=== PATIENT | female | born 1995 | race Two or more races ===

== ENCOUNTER 2016-12-16 03:05 | Emergency (ER) | payer OTHER ==
[~2016-12-16] VITALS: Ht 170.2 cm; Wt 126.6 kg
[2016-12-16 03:24] VITALS: BP 144/82
== END 2016-12-16 05:34 | disposition home or self-care (01) ==
LOC: ER 03:10
DX: J03.90 Acute tonsillitis, unspecified (principal); J35.1 Hypertrophy of tonsils

== ENCOUNTER 2017-10-07 14:12 | Emergency (ER) | payer MEDICAID, OTHER ==
[~2017-10-07] VITALS: Ht 170.2 cm; Wt 133.8 kg
[2017-10-07 14:43] VITALS: BP 127/52
== END 2017-10-07 16:26 | disposition home or self-care (01) ==
LOC: ER 14:12
DX: J03.90 Acute tonsillitis, unspecified (principal); Z88.8 Allergy status to other drugs, medicaments and biological substances

== ENCOUNTER 2018-01-06 19:18 | Emergency (ER) | payer MEDICAID ==
[~2018-01-06] VITALS: Ht 170.2 cm; Wt 136.1 kg
[2018-01-06 19:50] VITALS: BP 128/89
== END 2018-01-06 20:59 | disposition home or self-care (01) ==
LOC: ER 19:18
DX: R07.0 Pain in throat (principal); R20.8 Other disturbances of skin sensation; F12.90 Cannabis use, unspecified, uncomplicated; Z88.6 Allergy status to analgesic agent
CPT/HCPCS: 70360